=== PATIENT | female | born 1960 | race Caucasian/White ===

== ENCOUNTER 2019-06-15 15:51 | Outpatient (CLI) | payer OTHER | END 2019-06-15 23:59 | disposition home or self-care (01) | LOC: RAD 15:51 | PROVIDERS: ATTEND Orthopaedic Surgery | DX: S86.011A Strain of right Achilles tendon, initial encounter (principal); M66.371 Spontaneous rupture of flexor tendons, right ankle and foot; X58.XXXA Exposure to other specified factors, initial encounter; Y93.89 Activity, other specified; Y92.89 Other specified places as the place of occurrence of the external cause; Y99.8 Other external cause status ==